=== PATIENT | male | born 1985 | race Caucasian/White ===

== ENCOUNTER 2017-12-14 12:52 | Inpatient (IN) | payer MEDICAID ==
[~2017-12-14] VITALS: Ht 175.3 cm; Wt 73.2 kg
[2017-12-14] VITALS (15 sets, daily range): BP systolic 112–155; BP diastolic 55–98
[2017-12-14] MEDS ORDERED: vancomycin/NS 1 GM ADD-VANTAGE 250 ML IV ONE (13:20)
[2017-12-14] MEDS ORDERED: morphine 4 MG/ML inj SYRINge IV ONE (13:20)
[2017-12-14] MEDS ORDERED: normal saline 1000ML IV soln IV ONE (13:20)
[2017-12-14] MEDS ORDERED: ondansetron/PF 4mg/2ml inj IV ONE (13:20)
[2017-12-14] MEDS ORDERED: piperacillin/tazo 3.375gm/50ml 50 ML IV ONE (13:20)
[2017-12-14 13:41] LABS: BASOPHILS % (AUTO) 0.5 % (0-1); EOSINOPHILS % (AUTO) 0 % (0-6); HEMATOCRIT 41.3 % (42.0-52.0); HEMOGLOBIN 14.1 g/dl (14.0-17.9); LYMPHOCYTES # (AUTO) 1.3 X10'3 (1.1-4.8); MEAN CORPUSCULAR HEMOGLOBIN 29.6 PG (27.0-31.0); MEAN CORPUSCULAR HGB CONC 34.3 % (33.0-36.5); MEAN CORPUSCULAR VOLUME 86.4 FL (78-98); MONOCYTES # (AUTO) 0.6 X10'3 (0-0.9); MONOCYTES % (AUTO) 11.6 % (2-12); NEUTROPHILS # (AUTO) 3.4 X10'3 (1.8-7.7); NEUTROPHILS % (AUTO) 62.9 % (42-75); PLATELET COUNT 235 X10'3 (140-440); RED BLOOD COUNT 4.78 X10'6 (4.70-6.10); RED CELL DISTRIBUTION WIDTH 14.1 % (11.5-14.5); WHITE BLOOD COUNT 5.4 X10'3 (4.5-11.0)
[2017-12-14] MEDS ORDERED: clindamycin-Cleocin 900mg/D5W 50 ML IV ONE (13:45)
[2017-12-14 14:00] LABS: ALANINE AMINOTRANSFERASE 32 U/L (12-78); ALBUMIN 3.9 G/DL (3.4-5.0); ALBUMIN/GLOBULIN RATIO 1.1 (1.1-1.5); ALKALINE PHOSPHATASE 64 IU/L (46-116); ANION GAP 10 (8-16); ASPARTATE AMINO TRANSFERASE 37 U/L (10-37); BILIRUBIN,TOTAL 0.9 MG/DL (0.1-1.0); BLOOD UREA NITROGEN 7 MG/DL (7-18); BUN/CREATININE RATIO 5.5 (5.4-32.0); CALCIUM 9.2 MG/DL (8.5-10.1); CHLORIDE 101 MMOL/L (99-107); CREATININE 1.27 MG/DL (0.60-1.10); GLUCOSE 90 MG/DL (70-104); MAGNESIUM 1.9 MG/DL (1.5-2.4); POTASSIUM 3.9 MMOL/L (3.5-5.1); SODIUM 139 MMOL/L (135-145); TOTAL PROTEIN 7.6 G/DL (6.4-8.2); eGFR 67 ML/MIN
[2017-12-14] MEDS ORDERED: magnesium 1gm/100ml D5W IVPB 100 ML IV PRN (14:45)
[2017-12-14] MEDS ORDERED: magnesium 4gm in 100ml NS 100 ML IV PRN (14:45)
[2017-12-14] MEDS ORDERED: morphine 4 MG/ML inj SYRINge IV PRN ×2 (14:45→16:25)
[2017-12-14] MEDS ORDERED: potassium Cl 40MEQ/NS 500ml 500 ML IV PRN ×2 (14:45)
[2017-12-14] MEDS ORDERED: acetaminophen 325mg tablet PO PRN (14:45)
[2017-12-14] MEDS ORDERED: HYDROcodone/acetaminophen 10/325mg tab PO PRN (14:45)
[2017-12-14] MEDS ORDERED: potassium Cl 20 mEq SR tablet PO PRN ×2 (14:45)
[2017-12-14] MEDS ORDERED: HYDROcodone/acetaminophen 5mg/325mg tablet PO PRN (14:45)
[2017-12-14] MEDS ORDERED: magnesium Cl slow-release 64mg tablet PO PRN (14:45)
[2017-12-14] MEDS ORDERED: magnesium hydroxide 30ml (MOM) UD suspension PO PRN (14:45)
[2017-12-14] MEDS ORDERED: fentaNYL/PF 50MCG/1 ML 2ML syringe IV ONE (15:00)
[2017-12-14] MEDS ORDERED: midazolam 2 mg/2 ml injection ONE (16:02)
[2017-12-14] MEDS ORDERED: fentaNYL/PF 50MCG/1 ML 2ML syringe ONE (16:02)
[2017-12-14] MEDS ORDERED: LIDOcaine 2% (20mg/ml) 5ml vial ONE (16:05)
[2017-12-14] MEDS ORDERED: propofol inj 20 ML IV ONE (16:05)
[2017-12-14] MEDS ORDERED: succinylcholine 20mg/ml inj IV ONE (16:05)
[2017-12-14] MEDS ORDERED: sevoflurane 250ml liquid IH ONE (16:05)
[2017-12-14] MEDS ORDERED: proCHLORperazine 10 MG/2 ml inj IV PRN (16:25)
[2017-12-14] MEDS ORDERED: ondansetron/PF 4mg/2ml inj IV PRN (16:25)
[2017-12-14] MEDS ORDERED: ringers solution, lacted 1,000 ML IV SCH (16:25)
[2017-12-14] MEDS ORDERED: meperidine/PF 25mg/ml syringe IV PRN ×2 (16:25)
[2017-12-14] MEDS ORDERED: BUPIVAcaine/PF 2.5mg/ml (0.25%) 10ml vial ONE (16:32)
[2017-12-14] MEDS ORDERED: naloxone 0.4 mg/ml inj ONE (16:55)
[2017-12-14] MEDS: meperidine/PF 25mg/ml syringe IV PRN ×3 (17:06→17:41)
[2017-12-14] MEDS ORDERED: ipratropium/albuterol 3ml nebule IH ONE (17:10)
[2017-12-14] MEDS: morphine 4 MG/ML inj SYRINge IV PRN ×2 (17:31→17:36)
[2017-12-14] MEDS ORDERED: acetaminophen 1,000mg/100ml IV 100 ML IV ONE (17:40)
[2017-12-14] MEDS ORDERED: fentaNYL/PF 50MCG/1 ML 2ML syringe IV PRN (17:40)
[2017-12-14] MEDS: fentaNYL/PF 50MCG/1 ML 2ML syringe IV PRN ×2 (17:48→17:52)
[2017-12-14] MEDS: potassium Cl 20mEq in NS 1,000 ML IV SCH (19:08)
[2017-12-14] MEDS: ondansetron/PF 4mg/2ml inj IV PRN (19:14)
[2017-12-14] MEDS ORDERED: NO HOME MEDS (19:41)
[2017-12-14] MEDS ORDERED: CADD PCA waste documentation MC PRN (19:50)
[2017-12-14] MEDS ORDERED: naloxone 0.4 mg/ml inj IV PRN (19:50)
[2017-12-14] MEDS: docusate sod 100mg capsule PO SCH (20:34)
[2017-12-14] MEDS: methylPREDNISolone sod succ 125mg/2ml vial IV SCH ×2 (20:34→20:44)
[2017-12-14] MEDS: HYDROmorphone/NS 1 mg/ml CADD 50 ML IV SCH ×2 (20:38→23:00)
[2017-12-14] MEDS: mag hydrox/Alum hydrox/simeth 30ml oral suspension PO PRN (22:54)
[2017-12-15] VITALS (7 sets, daily range): BP systolic 133–162; BP diastolic 58–94
[2017-12-15] MEDS: potassium Cl 20mEq in NS 1,000 ML IV SCH ×2 (00:43→05:06)
[2017-12-15] MEDS: HYDROmorphone/NS 1 mg/ml CADD 50 ML IV SCH ×4 (01:00→07:00)
[2017-12-15] MEDS: vancomycin/NS 1 GM ADD-VANTAGE 250 ML IV SCH ×2 (02:09→14:24)
[2017-12-15] MEDS: ondansetron/PF 4mg/2ml inj IV PRN ×3 (05:06→17:06)
[2017-12-15 05:48] LABS: BASOPHILS % (AUTO) 0.2 % (0-1); EOSINOPHILS # (AUTO) 0.1 X10'3 (0-0.9); HEMATOCRIT 38.9 % (42.0-52.0); HEMOGLOBIN 13.1 g/dl (14.0-17.9); LYMPHOCYTES # (AUTO) 0.5 X10'3 (1.1-4.8); LYMPHOCYTES % (AUTO) 9.8 % (21-51); MEAN CORPUSCULAR HEMOGLOBIN 29.3 PG (27.0-31.0); MEAN CORPUSCULAR HGB CONC 33.7 % (33.0-36.5); MEAN PLATELET VOLUME 7.8 FL (7.4-10.4); MONOCYTES # (AUTO) 0.1 X10'3 (0-0.9); MONOCYTES % (AUTO) 1.6 % (2-12); NEUTROPHILS # (AUTO) 4.6 X10'3 (1.8-7.7); NEUTROPHILS % (AUTO) 87.4 % (42-75); PLATELET COUNT 212 X10'3 (140-440); RED BLOOD COUNT 4.47 X10'6 (4.70-6.10); RED CELL DISTRIBUTION WIDTH 13.9 % (11.5-14.5); WHITE BLOOD COUNT 5.3 X10'3 (4.5-11.0)
[2017-12-15 06:09] LABS: ALBUMIN 3.4 G/DL (3.4-5.0); ANION GAP 9 (8-16); BLOOD UREA NITROGEN 6 MG/DL (7-18); CALCIUM 8.9 MG/DL (8.5-10.1); CHLORIDE 104 MMOL/L (99-107); CREATININE 1.19 MG/DL (0.60-1.10); GLUCOSE 202 MG/DL (70-104); MAGNESIUM 1.7 MG/DL (1.5-2.4); POTASSIUM 4.6 MMOL/L (3.5-5.1); SODIUM 138 MMOL/L (135-145); TOTAL CARBON DIOXIDE 24.7 MMOL/L (24-32); eGFR 72 ML/MIN
[2017-12-15] MEDS ORDERED: HYDROcodone/acetaminophen 10/325mg tab PO PRN ×3 (06:45→14:50)
[2017-12-15] MEDS ORDERED: oxyCODONE/APAP 5-325mg tablet PO PRN (06:50)
[2017-12-15] MEDS: K and/or MAG REPLACEMENT MC SCH (07:23)
[2017-12-15] MEDS: docusate sod 100mg capsule PO SCH ×2 (07:33→19:49)
[2017-12-15] MEDS: pantoprazole 40mg Tablet.DR PO SCH (07:33)
[2017-12-15] MEDS: levoFLOXACIN-Levaquin 750MG/D5 150 ML IV SCH (07:34)
[2017-12-15] MEDS: methylPREDNISolone sod succ 125mg/2ml vial IV SCH ×2 (07:34→19:49)
[2017-12-15] MEDS: oxyCODONE/APAP 5-325mg tablet PO PRN ×2 (07:48→11:46)
[2017-12-15] MEDS ORDERED: CADD PCA waste documentation MC PRN (11:05)
[2017-12-15] MEDS: mag hydrox/Alum hydrox/simeth 30ml oral suspension PO PRN (11:58)
[2017-12-15] MEDS ORDERED: iohexol 300mg/ml 100ml inj. ONE (12:46)
[2017-12-15] MEDS: HYDROcodone/acetaminophen 10/325mg tab PO PRN ×3 (15:09→23:58)
[2017-12-15] MEDS: ibuprofen tablet 400 MG TABLET PO SCH (18:55)
[2017-12-15] MEDS: lactobacillus rhamnosus 10,000 MMU CELLS/CAPSULE PO SCH (19:49)
[2017-12-16] MEDS ORDERED: VANCOMYCIN LEVEL IV ONE (01:30)
[2017-12-16 01:48] LABS: BASOPHILS % (AUTO) 0.1 % (0-1); EOSINOPHILS % (AUTO) 0 % (0-6); HEMATOCRIT 37.3 % (42.0-52.0); HEMOGLOBIN 12.6 g/dl (14.0-17.9); LYMPHOCYTES # (AUTO) 0.6 X10'3 (1.1-4.8); LYMPHOCYTES % (AUTO) 6.8 % (21-51); MEAN CORPUSCULAR HEMOGLOBIN 29.3 PG (27.0-31.0); MEAN CORPUSCULAR HGB CONC 33.8 % (33.0-36.5); MEAN CORPUSCULAR VOLUME 86.6 FL (78-98); MONOCYTES # (AUTO) 0.3 X10'3 (0-0.9); MONOCYTES % (AUTO) 3.7 % (2-12); NEUTROPHILS # (AUTO) 7.7 X10'3 (1.8-7.7); NEUTROPHILS % (AUTO) 89.4 % (42-75); PLATELET COUNT 225 X10'3 (140-440); RED CELL DISTRIBUTION WIDTH 13.3 % (11.5-14.5); WHITE BLOOD COUNT 8.6 X10'3 (4.5-11.0)
[2017-12-16 01:49] LABS: ALBUMIN 3.2 G/DL (3.4-5.0); ANION GAP 6 (8-16); BLOOD UREA NITROGEN 9 MG/DL (7-18); BUN/CREATININE RATIO 7.3 (5.4-32.0); CALCIUM 8.7 MG/DL (8.5-10.1); CHLORIDE 105 MMOL/L (99-107); CREATININE 1.23 MG/DL (0.60-1.10); GLUCOSE 155 MG/DL (70-104); MAGNESIUM 2.2 MG/DL (1.5-2.4); POTASSIUM 4.1 MMOL/L (3.5-5.1); SODIUM 138 MMOL/L (135-145); TOTAL CARBON DIOXIDE 27.4 MMOL/L (24-32); VANCOMYCIN,TROUGH 6.7 UG/ML (6.0-14.0); eGFR 69 ML/MIN
[2017-12-16] MEDS: vancomycin/NS 1 GM ADD-VANTAGE 250 ML IV SCH (01:57)
[2017-12-16 03:40] LABS: CLARITY,URINE CLEAR (Clear); COLOR,URINE YELLOW (Yellow); GLUCOSE, URINE NEGATIVE (Neg); KETONES,URINE NEGATIVE (Neg); LEUKOCYTE ESTERASE ,URINE NEGATIVE (Neg); NITRITES, URINE NEGATIVE (Neg); OCCULT BLOOD,URINE NEGATIVE (Neg); PROTEIN,URINE NEGATIVE (Neg); UROBILINOGEN,URINE 0.2 E.U/dL (0.2-1.0)
[2017-12-16 03:41] LABS: UA COLLECTION TYPE CLN CATCH MIDSTREAM
[2017-12-16 03:49] LABS: URINE AMPHETAMINE SCREEN NEGATIVE (Neg); URINE BARBITUATE SCREEN NEGATIVE (Neg); URINE BENZODIAZEPINES SCREEN NEGATIVE (Neg); URINE CANNABINOID SCREEN POSITIVE (Neg); URINE COCAINE SCREEN NEGATIVE (Neg); URINE METHADONE SCREEN NEGATIVE (Neg); URINE OPIATE SCREEN POSITIVE (Neg); URINE PHENCYCLIDINE SCREEN NEGATIVE (Neg)
[2017-12-16] MEDS: HYDROcodone/acetaminophen 10/325mg tab PO PRN ×5 (03:57→21:08)
[2017-12-16 06:37] VITALS: BP 126/64
[2017-12-16] MEDS: docusate sod 100mg capsule PO SCH ×2 (07:40→19:20)
[2017-12-16] MEDS: lactobacillus rhamnosus 10,000 MMU CELLS/CAPSULE PO SCH ×2 (07:40→19:20)
[2017-12-16] MEDS: levoFLOXACIN-Levaquin 750MG/D5 150 ML IV SCH (07:40)
[2017-12-16] MEDS: pantoprazole 40mg Tablet.DR PO SCH (07:40)
[2017-12-16] MEDS: methylPREDNISolone sod succ 125mg/2ml vial IV SCH (07:40)
[2017-12-16] MEDS: ibuprofen tablet 400 MG TABLET PO SCH ×3 (07:40→17:50)
[2017-12-16] MEDS: K and/or MAG REPLACEMENT MC SCH (07:55)
[2017-12-16] MEDS ORDERED: methylPREDNISolone sod succ/PF 40mg inj. IV SCH (09:47)
[2017-12-16] MEDS: morphine 4 MG/ML inj SYRINge IV PRN ×4 (10:25→23:53)
[2017-12-16] MEDS: ondansetron/PF 4mg/2ml inj IV PRN ×3 (10:25→23:53)
[2017-12-16 12:01] VITALS: BP 144/49
[2017-12-16] MEDS ORDERED: ceFAZolin 1GM/D5W- ADD-VANTAGE 50 ML IV SCH (16:00)
[2017-12-16 18:00] VITALS: BP 145/55
[2017-12-16] MEDS: linezolid 600mg tablet PO SCH (19:32)
[2017-12-16] MEDS ORDERED: linezolid 600mg/300ml PREMIX 300 ML IV SCH (20:00)
[2017-12-16 22:00] VITALS: BP 158/97
[2017-12-17] MEDS: HYDROcodone/acetaminophen 10/325mg tab PO PRN ×3 (01:28→13:38)
[2017-12-17] MEDS: morphine 4 MG/ML inj SYRINge IV PRN ×2 (05:08→09:37)
[2017-12-17 06:00] VITALS: BP 121/61
[2017-12-17 06:07] LABS: BASOPHILS % (AUTO) 0.3 % (0-1); EOSINOPHILS % (AUTO) 0.7 % (0-6); HEMATOCRIT 35.6 % (42.0-52.0); HEMOGLOBIN 11.9 g/dl (14.0-17.9); LYMPHOCYTES # (AUTO) 2.3 X10'3 (1.1-4.8); LYMPHOCYTES % (AUTO) 36.1 % (21-51); MEAN CORPUSCULAR HEMOGLOBIN 29.1 PG (27.0-31.0); MEAN CORPUSCULAR HGB CONC 33.4 % (33.0-36.5); MEAN CORPUSCULAR VOLUME 87.2 FL (78-98); MEAN PLATELET VOLUME 7.7 FL (7.4-10.4); MONOCYTES # (AUTO) 0.6 X10'3 (0-0.9); MONOCYTES % (AUTO) 9.9 % (2-12); NEUTROPHILS # (AUTO) 3.3 X10'3 (1.8-7.7); PLATELET COUNT 218 X10'3 (140-440); RED BLOOD COUNT 4.09 X10'6 (4.70-6.10); RED CELL DISTRIBUTION WIDTH 14.3 % (11.5-14.5); WHITE BLOOD COUNT 6.3 X10'3 (4.5-11.0)
[2017-12-17 06:26] LABS: ALBUMIN 3.2 G/DL (3.4-5.0); ANION GAP 5 (8-16); BLOOD UREA NITROGEN 13 MG/DL (7-18); BUN/CREATININE RATIO 9.6 (5.4-32.0); CALCIUM 9.3 MG/DL (8.5-10.1); CHLORIDE 105 MMOL/L (99-107); CREATININE 1.36 MG/DL (0.60-1.10); GLUCOSE 102 MG/DL (70-104); MAGNESIUM 1.8 MG/DL (1.5-2.4); POTASSIUM 3.5 MMOL/L (3.5-5.1); SODIUM 139 MMOL/L (135-145); TOTAL CARBON DIOXIDE 28.6 MMOL/L (24-32); eGFR 62 ML/MIN
[2017-12-17] MEDS: K and/or MAG REPLACEMENT MC SCH (07:07)
[2017-12-17] MEDS: lactobacillus rhamnosus 10,000 MMU CELLS/CAPSULE PO SCH (08:06)
[2017-12-17] MEDS: docusate sod 100mg capsule PO SCH (08:06)
[2017-12-17] MEDS: ibuprofen tablet 400 MG TABLET PO SCH ×2 (08:06→14:22)
[2017-12-17] MEDS: pantoprazole 40mg Tablet.DR PO SCH (08:06)
[2017-12-17] MEDS: linezolid 600mg tablet PO SCH (08:07)
[2017-12-17] MEDS ORDERED: predniSONE 20 mg tablet PO SCH (08:30)
[2017-12-17 10:00] VITALS: BP 148/79
[2017-12-17] MEDS: ondansetron/PF 4mg/2ml inj IV PRN (14:16)
[2017-12-17] MEDS ORDERED: HYDR-3972 PO (15:45)
[2017-12-17] MEDS ORDERED: LINE600T6 PO (15:45)
[2017-12-17] MEDS ORDERED: OMEP20TA23 PO (15:45)
[2017-12-17] MEDS ORDERED: PRED20TA PO ×3 (15:45→15:55)
[2017-12-17] MEDS ORDERED: COL100C PO (15:45)
[2017-12-18] MEDS ORDERED: VANCOMYCIN LEVEL IV ONE (01:30)
== END 2017-12-17 17:30 | disposition home or self-care (01) | DRG 364 ==
LOC: ER 12:53 → ED HOLD 14:43 → ORTHO 4S 16:22
PROVIDERS: ADMIT Internal Medicine; ATTEND Internal Medicine
PROC: 0JBK0ZZ Excision of Left Hand Subcutaneous Tissue and Fascia, Open Approach (ICD-10-PCS; 2017-12-14)
PROC: 0H9GXZX Drainage of Left Hand Skin, External Approach, Diagnostic (ICD-10-PCS; 2017-12-14)
PROC: 0JBN0ZZ Excision of Right Lower Leg Subcutaneous Tissue and Fascia, Open Approach (ICD-10-PCS; principal; 2017-12-14 16:05)
PROC: BW2F1ZZ Computerized Tomography (CT Scan) of Neck using Low Osmolar Contrast (ICD-10-PCS; 2017-12-15)
DX: L03.114 Cellulitis of left upper limb (principal); K50.90 Crohn's disease, unspecified, without complications; L02.512 Cutaneous abscess of left hand; S61.402A Unspecified open wound of left hand, initial encounter; L02.415 Cutaneous abscess of right lower limb; A49.01 Methicillin susceptible Staphylococcus aureus infection, unspecified site; X58.XXXA Exposure to other specified factors, initial encounter; M25.512 Pain in left shoulder; Z88.0 Allergy status to penicillin; Z88.1 Allergy status to other antibiotic agents; Z88.8 Allergy status to other drugs, medicaments and biological substances; Y93.89 Activity, other specified; Y92.89 Other specified places as the place of occurrence of the external cause; Y99.8 Other external cause status
CPT/HCPCS: 36415; 70491; 73221; 73718; 80048; 80053; 80202; 80305; 81003; 83605; 83735; 84145; 85025; 87040; 87070; 87075; 87077; 87186; 94640; 96365; 96375; 97116; 97162; 99285; A6222; A6402; A6449; A7000; J0131; J0330; J1170; J1956; J2001; J2020; J2175; J2250; J2270; J2310; J2405; J2704; J2930; J3010; J3370; J3490; J7030; J7120; J7512; Q9967

== ENCOUNTER 2018-02-15 13:38 | Emergency (ER) | payer MEDICAID ==
[~2018-02-15] VITALS: Ht 597.6 cm; Wt 70.0 kg
[~2018-02-15 13:38] MED LIST: COL100C PO; HYDR-3972 PO; LINE600T32 PO; OMEP20TA23 PO; PRED20TA PO
[2018-02-15] MEDS ORDERED: morphine 4 MG/ML inj SYRINge IV PRN (14:45)
[2018-02-15] MEDS ORDERED: ondansetron/PF 4mg/2ml inj IV ONE ×2 (14:45→15:50)
[2018-02-15] MEDS ORDERED: normal saline 1000ML IV soln IVB ONE (14:45)
[2018-02-15 14:52] LABS: BASOPHILS % (AUTO) 0.9 % (0-1); EOSINOPHILS # (AUTO) 0.2 X10'3 (0-0.9); EOSINOPHILS % (AUTO) 3.2 % (0-6); HEMATOCRIT 40.1 % (42.0-52.0); HEMOGLOBIN 13.6 g/dl (14.0-17.9); LYMPHOCYTES # (AUTO) 1.7 X10'3 (1.1-4.8); LYMPHOCYTES % (AUTO) 32.8 % (21-51); MEAN CORPUSCULAR HEMOGLOBIN 29.4 PG (27.0-31.0); MEAN CORPUSCULAR HGB CONC 33.9 % (33.0-36.5); MEAN CORPUSCULAR VOLUME 86.7 FL (78-98); MEAN PLATELET VOLUME 6.7 FL (7.4-10.4); MONOCYTES # (AUTO) 0.6 X10'3 (0-0.9); MONOCYTES % (AUTO) 11.8 % (2-12); NEUTROPHILS # (AUTO) 2.7 X10'3 (1.8-7.7); NEUTROPHILS % (AUTO) 51.3 % (42-75); PLATELET COUNT 280 X10'3 (140-440); RED BLOOD COUNT 4.62 X10'6 (4.70-6.10); RED CELL DISTRIBUTION WIDTH 15.1 % (11.5-14.5); WHITE BLOOD COUNT 5.3 X10'3 (4.5-11.0)
[2018-02-15] MEDS ORDERED: iohexol 300mg/ml 100ml inj. ONE (15:01)
[2018-02-15 15:09] LABS: ALANINE AMINOTRANSFERASE 32 U/L (12-78); ALBUMIN 3.6 G/DL (3.4-5.0); ALKALINE PHOSPHATASE 68 IU/L (46-116); ANION GAP 5 (8-16); ASPARTATE AMINO TRANSFERASE 25 U/L (10-37); BILIRUBIN,TOTAL 0.3 MG/DL (0.1-1.0); BLOOD UREA NITROGEN 11 MG/DL (7-18); BUN/CREATININE RATIO 9.8 (5.4-32.0); CALCIUM 8.6 MG/DL (8.5-10.1); CHLORIDE 102 MMOL/L (99-107); CREATININE 1.12 MG/DL (0.60-1.10); GLUCOSE 108 MG/DL (70-104); LIPASE 199 U/L (73-393); POTASSIUM 4.1 MMOL/L (3.5-5.1); SODIUM 138 MMOL/L (135-145); TOTAL CARBON DIOXIDE 30.7 MMOL/L (24-32); TOTAL PROTEIN 7.1 G/DL (6.4-8.2); eGFR 77 ML/MIN
[2018-02-15 15:44] LABS: INR 0.9 INR; PROTHROMBIN TIME 9.7 SECONDS (9.0-12.0)
[2018-02-15] MEDS ORDERED: morphine 4 MG/ML inj SYRINge IM ONE (15:50)
[2018-02-15] MEDS ORDERED: PRED20TA PO (15:55)
[2018-02-15] MEDS ORDERED: ACET-3067 PO (15:55)
[2018-02-15] MEDS ORDERED: CLIN150C2 PO (15:55)
[2018-02-15 16:14] LABS: CLARITY,URINE CLEAR (Clear); COLOR,URINE YELLOW (Yellow); GLUCOSE, URINE NEGATIVE (Neg); KETONES,URINE NEGATIVE (Neg); LEUKOCYTE ESTERASE ,URINE NEGATIVE (Neg); NITRITES, URINE NEGATIVE (Neg); OCCULT BLOOD,URINE LARGE (Neg); PROTEIN,URINE NEGATIVE (Neg); UROBILINOGEN,URINE 0.2 E.U/dL (0.2-1.0)
[2018-02-15 16:20] VITALS: BP 114/53
[2018-02-15 16:20] LABS: UA COLLECTION TYPE CLN CATCH MIDSTREAM
[2018-02-15 16:21] LABS: RBC,URINE 20-50 /HPF (0-2); WBC,URINE NONE SEEN /HPF (0-4)
[2018-02-15 16:22] LABS: BACTERIA,URINE NONE SEEN /HPF (Neg); MUCUS STRANDS NONE SEEN /LPF (Neg); SQUAMOUS EPITHELIAL CELL,UR NONE SEEN /LPF (FEW)
== END 2018-02-15 16:22 | disposition home or self-care (01) ==
LOC: ER 13:39
DX: R10.84 Generalized abdominal pain (principal); R11.10 Vomiting, unspecified; R19.7 Diarrhea, unspecified; K08.89 Other specified disorders of teeth and supporting structures; Z87.19 Personal history of other diseases of the digestive system; Z98.890 Other specified postprocedural states; Z88.1 Allergy status to other antibiotic agents; Z88.0 Allergy status to penicillin; Z79.899 Other long term (current) drug therapy
CPT/HCPCS: 36415; 74177; 80053; 81001; 83690; 85025; 85610; 96361; 96372; 96374; 96375; 96376; 99285; J2270; J2405; J7030; Q9967